=== PATIENT | female | born 1985 | race Caucasian/White ===

== ENCOUNTER 2023-08-30 12:04 | Emergency (ER) | payer OTHER ==
[~2023-08-30] VITALS: Ht 162.6 cm; Wt 69.9 kg
[2023-08-30 12:19] VITALS: BP 131/96; PULSE 78; RESP 18; TEMP 98.7; O2SAT 99
[2023-08-30 13:13] LABS: BASOPHILS # (AUTO) 0.1 K/uL (0.00-0.22); BASOPHILS % (AUTO) 0.7 % (0.0-2.0); EOSINOPHILS # (AUTO) 0.1 K/uL (0-0.4); EOSINOPHILS % (AUTO) 1.1 % (0.0-4.0); HEMATOCRIT 36.4 % (36-48); HEMOGLOBIN 12.8 g/dL (12.0-16.0); LYMPHOCYTES # (AUTO) 3.4 K/uL (2.5-16.5); LYMPHOCYTES % (AUTO) 28.7 % (20.5-51.1); MEAN CORPUSCULAR HEMOGLOBIN 26 pg (27-31); MEAN CORPUSCULAR HGB CONC 35 g/dL (33-37); MONOCYTES # (AUTO) 0.7 K/uL (0.8-1.0); MONOCYTES % (AUTO) 6.1 % (1.7-9.3); NEUTROPHILS # (AUTO) 7.5 K/uL (1.8-7.7); NEUTROPHILS % (AUTO) 63.4 % (42.2-75.2); PLATELET COUNT (AUTO) 308 K/uL (140-450); RED BLOOD CELL COUNT(AUTO) 4.92 MIL/uL (4.20-5.40); RED CELL DISTRIBUTION WIDTH 14.5 % (11.6-13.7); WHITE BLOOD COUNT (AUTO) 11.9 K/uL (4.8-10.8)
[2023-08-30 13:19] LABS: APPEARANCE,URINE CLEAR (CLEAR); BILIRUBIN,URINE NEGATIVE (NEGATIVE); BLOOD, URINE NEGATIVE (NEGATIVE); COLOR,URINE YELLOW (YELLOW); LEUKOCYTE ESTERASE ,URINE TRACE (NEGATIVE); NITRITE, URINE NEGATIVE (NEGATIVE); PROTEIN,URINE NEGATIVE (NEGATIVE); UGLUCOSE NEGATIVE (NEGATIVE); UROBILINOGEN,URINE 0.2 EU/dL (0.2 - 1)
[2023-08-30 13:26] LABS: ANION GAP 11.6 (8-16); CALCIUM 8.8 mg/dL (8.5-10.1); CARBON DIOXIDE 28.4 mmol/L (21-32); CREATININE 0.7 mg/dL (0.6-1.3)
[2023-08-30 13:30] LABS: RBC,URINE 0-5 /HPF (0-5)
[2023-08-30 13:31] LABS: BACTERIA,URINE 10-30 (MOD) /HPF (None Seen); SQUAMOUS EPITHELIAL CELL,UR 4-10 (MOD) /LPF (0-3 (FEW))
[2023-08-30 13:34] LABS: FLU A ANTIGEN negative (NEGATIVE); FLU B ANTIGEN negative (NEGATIVE)
[2023-08-30] MEDS: NACL 0.9% 1,000 ML IV ONE (14:38)
[2023-08-30] MEDS: ACETAMINOPHEN 325 MG TAB PO ONE (14:55)
[2023-08-30] MEDS: KETOROLAC 30 MG/ML VIAL IVP ONE (14:59)
[2023-08-30] MEDS: ONDANSETRON 4 MG/2 ML VIAL IVP ONE (15:00)
[2023-08-30 16:01] LABS: CREATINE KINASE, TOTAL 31 U/L (26-192); THYROID STIMULATING HORMONE 0.92 uIU/mL (0.34-3.74)
[2023-08-30] MEDS ORDERED: CEPH-588 PO (16:20)
[2023-08-30 16:30] VITALS: BP 124/82; PULSE 62; RESP 10; TEMP 98.7; O2SAT 100
== END 2023-08-30 16:53 | disposition home or self-care (01) ==
LOC: MED 12:04
DX: R53.1 Weakness (principal); M79.18 Myalgia, other site; N30.00 Acute cystitis without hematuria; R07.89 Other chest pain; Z20.822 Contact with and (suspected) exposure to COVID-19; I10 Essential (primary) hypertension; Z98.890 Other specified postprocedural states
CPT/HCPCS: 36415; 71045; 80048; 81001; 81025; 82550; 83880; 84443; 84484; 84703; 85025; 87086; 87426; 87804; 93005; 96360; 99285; Q0092; J1885; J2405; J7030